=== PATIENT | female | born 1955 | race Caucasian/White ===

== ENCOUNTER 2025-10-11 09:30 | Day surgery (SDC) | payer MEDICARE, BC ==
[~2025-10-11 09:30] MED LIST: Ondansetron 4 MG/2 ML SDV IVPUSH PRN
[2025-10-11] MEDS ORDERED: Sodium Chloride 0.9% 10 ML Syringe IV ONE (09:31)
[2025-10-11] MEDS ORDERED: Midazolam 1 MG/ML 2 ML SDV IV ONE (09:31)
[2025-10-11] MEDS ORDERED: Dexamethasone 4 MG/ML SDV IV ONE (09:31)
[2025-10-11] MEDS: Moxifloxacin 0.5% Ophth Soln 3 ML Bottle EYELF ONE (09:58)
[2025-10-11] MEDS: Povidone-Iodine 5% Sterile Ophth Soln 30 ML Bottle EYELF ONE ×2 (10:00→10:57)
[2025-10-11] MEDS: Phenylephrine 10% Ophth Soln 5 ML Bot EYELF ONE (10:00)
[2025-10-11] MEDS: Timolol Maleate 0.5% Ophth Soln 5 ML Bottle EYELF ONE (10:01)
[2025-10-11] MEDS: Cataract Ophth Solution EYELF ONE (10:02)
[2025-10-11] MEDS: Dexamethasone/Neomycin/Polymyxin B Ophth Oint 3.5 GM Tube EYELF ONE (10:58)
[2025-10-11] MEDS: Apraclonidine 0.5% Ophth Soln 5 ML Bot EYELF ONE (10:58)
[2025-10-11] MEDS ORDERED: Dexamethasone 4 MG/ML SDV ONE (11:01)
== END 2025-10-11 11:34 | disposition home or self-care (01) ==
LOC: DL.SDS 09:30
PROVIDERS: ATTEND Ophthalmology
DX: H25.813 Combined forms of age-related cataract, bilateral (principal); I10 Essential (primary) hypertension; F17.210 Nicotine dependence, cigarettes, uncomplicated; Z79.899 Other long term (current) drug therapy
CPT/HCPCS: 66984; A9270; J1100; J2003; J2250; J3373; 00142; J3490; V2632

== ENCOUNTER → 2025-10-25 | Day surgery (SDC) | payer MEDICARE, BC ==
[~2025-10-25] MED LIST changes: +Dexamethasone 4 MG/ML SDV IV ONE; +Midazolam 1 MG/ML 2 ML SDV IV ONE; +Sodium Chloride 0.9% 10 ML Syringe IV ONE
[2025-10-25] MEDS: Povidone-Iodine 5% Sterile Ophth Soln 30 ML Bottle EYERT ONE ×2 (10:08→11:12)
[2025-10-25] MEDS: Moxifloxacin 0.5% Ophth Soln 3 ML Bottle EYERT ONE (10:10)
[2025-10-25] MEDS: Phenylephrine 10% Ophth Soln 5 ML Bot EYERT ONE (10:11)
[2025-10-25] MEDS: Cataract Ophth Solution EYERT ONE (10:14)
[2025-10-25] MEDS: Timolol Maleate 0.5% Ophth Soln 5 ML Bottle EYERT ONE (10:14)
[2025-10-25] MEDS: Apraclonidine 0.5% Ophth Soln 5 ML Bot EYERT ONE (11:12)
[2025-10-25] MEDS: Diclofenac Sodium 0.1% Ophth Soln 5 ML Bottle EYERT ONE (11:12)
[2025-10-25] MEDS: Dexamethasone/Neomycin/Polymyxin B Ophth Oint 3.5 GM Tube EYERT ONE (11:13)
== END | disposition home or self-care (01) ==
LOC: DL.SDS 09:19
PROVIDERS: ATTEND Ophthalmology
DX: H25.811 Combined forms of age-related cataract, right eye (principal); I10 Essential (primary) hypertension; F17.210 Nicotine dependence, cigarettes, uncomplicated; Z79.899 Other long term (current) drug therapy
CPT/HCPCS: A9270-GY; J1100; J2003; J2250; J3373; J3490; V2632